=== PATIENT | female | born 1980 | race African-American/Black ===

== ENCOUNTER 2019-07-22 14:09 | Inpatient (IN) | payer BC, OTHER ==
[~2019-07-22] VITALS: Ht 162.6 cm; Wt 92.1 kg
--- NOTE | ~2019-07-22 | HC ---
[facility] [place] [address] CONSULTATION Name: MITCHELL SOLIZ Room #: 441-P [facility] IN M.R.#: [id number] Admission: 07/22/19 Attend Phys: Alvina Riddle MD Discharge: 07/27/19 Date of : 76 Report #: [id number] THIS REPORT FOR: //name// CC: [facility] physician/PCP Alvina Riddle DATE OF SERVICE: 07/27/2019 REASON FOR CONSULTATION: Cholecystectomy. ASSESSMENT: 1. Biliary dyskinesia. 2. Diffuse gastritis. 3. Chronic nausea and vomiting. 4. Minimal change glomerulonephritis. 5. Obesity. 6. Severe hypoalbuminemia. 7. On steroids. RECOMMENDATIONS: 1. Thank you for the consultation. I will follow along. 2. The patient has diagnosis of biliary dyskinesia regarding gallbladder. Discussed what this means with the patient, being that it is a functional disorder of the gallbladder. Recommend cholecystectomy when medically appropriate. Given that she has severe hypoalbuminemia and is being started on treatment for this, I think it would be prudent to give her time to see if we cannot get her medical conditions optimized prior to operating. 3. Did discuss the possibility of proceeding with a laparoscopic cholecystectomy this hospital stay with her current conditions. I do think if all goes well, we could safely perform a laparoscopic cholecystectomy, but given that complications sometimes are not predictable, in the event that she has a complication, she would not do well. The patient was satisfied with this initially; however, she grew more irritable and tearful regarding the plan. 4. I will follow along and reevaluate daily. HISTORY OF PRESENT ILLNESS: The patient is a 38-year-old female who has a longstanding history of abdominal pain. Per the patient, her story begins in January 2019 with nausea, vomiting, diarrhea. She presented to the ER and was told she had gastritis. Shortly thereafter, she began noticing diffuse swelling in her extremities and body, but mainly in her ankles and feet. Then, in April 2019, she had nausea, vomiting, diarrhea symptoms return. She presented to the ER and was again told she had gastritis. Her swelling was more severe following that. CT scan was performed that demonstrated colitis. The patient was following up with the primary care physician for the edema, was started on metolazone and Lasix. Then on 07/12/2019, the patient underwent a renal biopsy and was diagnosed with minimal change glomerulonephritis. She was started on [address] [address] CONSULTATION Name: MITCHELL SOLIZ Room #: 441-P [facility] IN ..#: [id number] Admission: 07/22/19 Attend Phys: Alvina Riddle MD Discharge: 07/27/19 Date of : 76 Report #: [id number] prednisone 60 mg and began this on 07/21/2019. Shortly thereafter that, she felt horrible, on 07/22/2019, began having severe fatigue, vomiting, nausea, diarrhea and diffuse cramps. The patient underwent an EGD this hospitalization and diffuse gastritis was identified. The patient underwent a PIPIDA scan on 07/23/2019 and was diagnosed with low ejection fraction and with biliary dyskinesia. The patient reports that her pain is in her left upper quadrant. PAST MEDICAL HISTORY: 1. Constipation. 2. Minimal change glomerulonephritis, on steroids. PAST SURGICAL HISTORY: 1. Tubal ligation. 2. EGD. 3. Colonoscopy 10 years ago. SOCIAL HISTORY: Denies the use of alcohol, tobacco or recreational drugs. 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 FAMILY HISTORY: 1. Aunt had colorectal cancer. 2. Denies any other cancers or malignancies. 3. Denies coagulopathy. REVIEW OF SYSTEMS: CONSTITUTIONAL: No fever. No chills. HEENT: Denies blurring of vision, double vision, headaches, hearing loss, sinus drainage or sore throat. Denies blurring of vision, double vision, headaches, hearing loss, sinus drainage or sore throat. CARDIOVASCULAR: Denies chest pain, palpitations, orthopnea or paroxysmal nocturnal dyspnea. RESPIRATORY: Denies cough, wheezing, hemoptysis, or shortness of air. GASTROINTESTINAL: See above and below. GENITOURINARY: See above and below. MUSCULOSKELETAL: No joint pain. No muscle pain. NEUROLOGICAL: Denies tremor, stroke or seizure. Denies tremor, stroke or seizure. HEMATOLOGIC/LYMPHATICS: Denies easy bruising, easy bleeding or enlarged lymph nodes. SKIN: No rash or ulceration. ENDOCRINE: No heat or cold intolerance. PSYCHIATRIC: Denies depression, anxiety, or schizophrenia. PHYSICAL EXAMINATION: VITAL SIGNS: Temperature 36.4, pulse 58, respiratory rate 20, blood pressure 97/64, pulse ox is 100%. [address] [address] CONSULTATION Name: MITCHELL SOLIZ Room #: 441-P [facility] IN M.R.#: [id number] Admission: 07/22/19 Attend Phys: Alvina Riddle MD Discharge: 07/27/19 Date of : 76 Report #: [id number] GENERAL: No apparent distress, alert and oriented x 3. HEENT: PERRLA, EOMI, MMM, NCAT. NECK: Supple. No LAD. CARDIOVASCULAR: Regular rhythm and rate. Hemodynamically stable. Normal capillary refill. PULMONARY: Nonlabored. Clear to auscultation bilaterally. ABDOMEN: Soft, nontender to palpation, no guarding, rebound or rigidity. Nondistended. EXTREMITIES: Positive edema. SKIN: No rashes or bruises. PSYCHIATRIC: Normal mood and affect. NEUROLOGICAL: Grossly intact. CN II-XII grossly intact. MUSCULOSKELETAL: 5/5 strength in upper extremities and lower extremities bilaterally. LYMPHATICS: No cervical, inguinal, or supraclavicular lymphadenopathy. LABORATORY DATA: White blood count 9, hemoglobin 12.9, hematocrit 38.9, platelets 360. Sodium 140, potassium 3.5, creatinine 0.7, calcium 8, phosphorus 2.4. Total bilirubin 0.1, AST 19, ALT 7, alkaline phosphatase 29, albumin less than 0.6. Lipase is 98. HIDA SCAN IMPRESSION: Patent cystic duct and common bile duct. The gallbladder does not contract to any appreciable degree with the CCK infusion, suggesting gallbladder dysfunction with severe abdominal pain. By: [id number] Trino Hathaway MD /nt
[2019-07-22 14:18] VITALS: BP 113/78
[2019-07-22 15:06] LABS: HEMATOCRIT 45.4 % (37.0-47.0); HEMOGLOBIN 15.7 gm/dL (12.0-15.0); MCH 31.5 pg (26.0-34.0); MCHC 34.5 g/dL (28.0-37.0); MCV 91.4 fL (80.0-100.0); PLATELET COUNT 304 thou/uL (150-400); RBC 4.97 mil/uL (4.20-5.00); RDW 13.3 % (10.5-14.5); WBC 10.7 thou/uL (4.0-11.0)
[2019-07-22 15:19] LABS: ANION GAP 9 mmol/L (7-16); BUN 16 mg/dL (7-18); CALCIUM 8.3 mg/dL (8.5-10.1); CHLORIDE 97 mmol/L (98-107); CO2 25 mmol/L (21-32); CREATININE 0.9 mg/dL (0.6-1.0); GLUCOSE 160 mg/dL (74-106); LIPASE 98 U/L (73-393); SGOT 20 U/L (15-37); SGPT 12 U/L (30-65); SODIUM 131 mmol/L (136-145); TOTAL BILIRUBIN 0.2 mg/dL (<0.1-1.0); TOTAL PROTEIN 5.3 g/dL (6.4-8.2)
[2019-07-22 15:21] LABS: POTASSIUM 2.3 mmol/L (3.5-5.1)
[2019-07-22 15:27] LABS: ALBUMIN < 0.6 g/dL (3.4-5.0)
[2019-07-22 15:56] VITALS: BP 113/78
[2019-07-22 16:10] LABS: URINE BLOOD 1+ (Negative); URINE COLOR YELLOW; URINE GLUCOSE-RANDOM* NEGATIVE (Negative); URINE KETONES NEGATIVE (Negative); URINE LEUKOCYTES-REFLEX NEGATIVE (Negative); URINE NITRITE-REFLEX NEGATIVE (Negative); URINE PROTEIN (DIPSTICK) 3+ (Negative); URINE SPECIFIC GRAVITY 1.015 (1.005-1.035)
[2019-07-22 16:25] LABS: ICTOTEST (BILI CONFIRMATORY) Negative (Negative); URINE BILIRUBIN NEGATIVE (Negative); URINE CLARITY SL HAZY
[2019-07-22 16:46] LABS: SQUAMOUS >10 Many /LPF (0-3); URINE WBC-REFLEX 6-15 Few /HPF (0-5)
[2019-07-22 16:47] LABS: CASTS None Seen /LPF (None Seen); TRIPLE PHOSPHATE CRYSTALS 4-10 Moderate /LPF (None Seen); URINE RBC 3-10 Few /HPF (0-2)
[2019-07-22] MEDS ORDERED: CALCIUM + VITA1 EACH PO (18:10)
[2019-07-22] MEDS ORDERED: XANAX 0.5 MG0.5 M1 PO (18:10)
[2019-07-22] MEDS ORDERED: NEXIUM 40 MG CA40 M1 PO (18:10)
[2019-07-22 18:11] VITALS: BP 115/77
[2019-07-22] MEDS ORDERED: FUROSEMIDE 20 M20 M1 PO (18:11)
[2019-07-22] MEDS ORDERED: PREDNISONE 20 M20 M1 PO (18:11)
[2019-07-22] MEDS ORDERED: METOLAZONE 5 MG5 MG PO (18:11)
[2019-07-22 19:41] VITALS: BP 110/72
[2019-07-22] MEDS ORDERED: CALCIUM PLUS VIT D (23:22)
[2019-07-23 00:53] VITALS: BP 101/81
[2019-07-23 04:45] VITALS: BP 106/71
[2019-07-23 04:57] LABS: ABSOLUTE NEUTROPHILS 4.7 thou/uL (1.4-8.2); BASOPHILS 0.2 % (0.0-2.0); HEMATOCRIT 44.1 % (37.0-47.0); HEMOGLOBIN 14.9 gm/dL (12.0-15.0); LYMPHOCYTES 15.6 % (24.0-44.0); MCH 31.3 pg (26.0-34.0); MCHC 33.7 g/dL (28.0-37.0); PLATELET COUNT 329 thou/uL (150-400); POLYS 78.2 % (36.0-66.0); RBC 4.74 mil/uL (4.20-5.00); RDW 13.2 % (10.5-14.5)
[2019-07-23 05:07] LABS: ALBUMIN < 0.6 g/dL (3.4-5.0); ANION GAP 6 mmol/L (7-16); BUN 14 mg/dL (7-18); CALCIUM 7.6 mg/dL (8.5-10.1); CHLORIDE 96 mmol/L (98-107); CO2 28 mmol/L (21-32); CREATININE 0.9 mg/dL (0.6-1.0); GLUCOSE 148 mg/dL (74-106); MAGNESIUM 2.5 mg/dL (1.8-2.4); SGOT 19 U/L (15-37); SGPT 7 U/L (30-65); SODIUM 130 mmol/L (136-145); TOTAL BILIRUBIN 0.1 mg/dL (<0.1-1.0); TOTAL PROTEIN 5.1 g/dL (6.4-8.2)
[2019-07-23 05:19] LABS: POTASSIUM 2.6 mmol/L (3.5-5.1)
--- NOTE | 2019-07-23 07:40 | NUR ---
ASSUMED PT CARE AT 1900. VSS. PT A&0X4. PT WAS NAUSEOUS ALL NOC BUT WAS ONLY VOMITTING SALIVA, PT COMPLAINED OF PAIN ASSOCIATED WITH HER N/V. REGLAN AND ZOFRAN GIVEN NEEDED. ONE TIME ORDER OF MORPHINE ALSO GIVEN THIS AM. POTASSIUM REPLACED PRN; PT IS ON E-LYTE PROTOCOL. PT IS STABLE, SR ON THE MONITOR ALTHOUGH SHE HAD A COUPLE EPISODES OF ST AND HER HR WAS IN THE 120s BUT SHE TRENDED DOWN TO SR. SHE HAS BEEN NPO SINCE MIDNIGHT FOR HER ULTRASOUND THIS AM. WILL CONTINUE TO MONITOR PER POC.
[2019-07-23 07:50] VITALS: BP 120/83
[2019-07-23 11:45] VITALS: BP 107/73
--- NOTE | 2019-07-23 13:06 | EKG ---
[place] [address] [address] [facility] [place] [address] ELECTROCARDIOGRAM REPORT Name: MITCHELL SOLIZ Room #: 206-P ADM IN M.R.#: [id number] Admission: 07/22/19 Attend Phys: Alvina Riddle MD Discharge: Date of : 76 Report #: [id number] THIS REPORT FOR: //name// [facility] ED Test Date: 2019-07-22 Test Time: 16:59:39 Pat Name: MITCHELL SOLIZ Department: Room: 206 Gender: F Manager Creative: LAURA : 1980 Requested By: Marta Chapman Order Number: [id number] MD: Chas Collins Measurements Intervals [place] Rate: 86 P: 36 AR: 130 QRS: 4 QRSD: 88 T: 37 QT: 349 QTc: 418 Interpretive Statements Sinus rhythm Multiple ventricular premature complexes Nonspecific ST and T wave abnormality No previous ECG available for comparison Electronically Signed On 07-23-2019 13:05:33 RN MOBILE by Chas Collins [email or web address] <ELECTRONICALLY SIGNED> By: Chas Collins MD, [facility] 07/23/19 1305 1659 58 Chas Collins MD, FACC /EPI
--- NOTE | 2019-07-23 14:37 | NUR ---
RD consult received for pt with wt changes. Admit with possible biliary dyskinesia, gallbladder sludge. N/V for 3-4 days. Pt reports usual wt around 175 lb but has been higher with need for lasix. Pt will be discharging and having tests scheduled as OP. Asking if she can eat now-RN confirmed diet will advance to clear liquids. low nutrition risk
[2019-07-23 15:50] VITALS: BP 109/77
--- NOTE | 2019-07-23 19:55 | NUR ---
ASSUMED CARE PT SHIFT CHANGE. ASSESSMENTS CHARTED. MEDS GIVEN PER SEP. PT ALERT AND ORIENTED VSS, DENIES PAIN. C/O NAUSEA AND VOMITING-MANAGED WITH ANTIEMETICS PER SEP. O2 SATS WNL ON ROOM AIR. PT TO HAVE ABDOMINAL US-CANCELLED TODAY. PEPIDA SCAN RESCHEDULED FOR FRIDAY. PT TO HAVE EGD TOMORROW- COMMUNICATES UNDERSTANDING. CLEAR LIQUID DIET ORDERED-TOLERATING WELL. POTASSIUM REPLACED PER ORDERS. PT DENIES NEEDS AT THIS TIME. WILL CONT TO MONITOR.
[2019-07-23 20:08] VITALS: BP 117/86
[2019-07-23 22:10] LABS: CALCIUM 7.3 mg/dL (8.5-10.1); CREATININE 0.8 mg/dL (0.6-1.0); MAGNESIUM 2.1 mg/dL (1.8-2.4); POTASSIUM 3.2 mmol/L (3.5-5.1)
[2019-07-24 04:45] VITALS: BP 116/74
--- NOTE | 2019-07-24 06:44 | NUR ---
ASSUMED PT CARE AT 1900, PT A&OX4, COMPLAINED OF NAUSEA, MEDICATED WITH ZOFRAN AND METOCLOPRAMIDE PRN, NO FURTHER COMPLAINS, VS STABLE, NO COMPLAINS OF PAIN, RESTED WELL THROUGHOUT THE NIGHT, WILL CONTINUE TO MONITOR
[2019-07-24 07:55] VITALS: BP 107/72
--- NOTE | 2019-07-24 11:04 | P ---
[facility] [place] [address] PROCEDURE REPORT Name: MITCHELL SOLIZ Room #: 206-P [facility] IN M.R.#: [id number] Admission: 07/22/19 Attend Phys: Alvina Riddle MD Discharge: Date of : 76 Report #: [id number] THIS REPORT FOR: //name// CC: [facility] physician/PCP Alvina Riddle OUTPATIENT UPPER ENDOSCOPY REPORT BRIEF HISTORY: The patient is a 38-year-old woman with progressively worsening nausea and vomiting. She started with symptoms this past summer and they have been exacerbated by use of high dose steroids for glomerulonephritis; however, she did have symptoms prior to the use of steroids. PREOPERATIVE DIAGNOSIS: Worsening nausea and vomiting. POSTOPERATIVE DIAGNOSES: 1. Moderate diffuse gastritis. 2. Small hiatus hernia. MEDICATIONS: Deep sedation with propofol per Anesthesia. SPECIMEN: Biopsies of gastritis. ESTIMATED BLOOD LOSS: 3 mL. PROCEDURE: EGD with biopsy. FINDINGS: Prior to propofol sedation, procedure of upper endoscopy discussed with the patient as well as potential risks and its complications. She indicates she understands and desires to proceed. DESCRIPTION OF PROCEDURE: With the patient in left lateral decubitus position, the Olympus video endoscope was inserted in the cervical esophagus under direct vision without difficulty. Examination of this organ through its entire style length revealed normal esophageal mucosa down the squamocolumnar junction. Squamocolumnar junction was inspected and noted to be unremarkable. There is no evidence of ulcers, erosions or endoscopic evidence of esophagitis. No strictures or masses were seen. No rings were seen. Intermittently, a small hiatus hernia was noted. The mucosa and hernia was unremarkable. The scope was advanced in the stomach, which was examined on end view as well as retroflexed views. There was a diffuse gastritis in the form of diffuse nodularity in the antrum and body of the stomach; however, the mucosa was intact and there were no ulcers or erosions. Also with regards to nausea and vomiting, there were no retained solids or liquids in the stomach. There was no endoscopic evidence of gastric outlet obstruction. Upon retroflexion, the small hiatus hernia was seen. No other abnormalities were identified. The pylorus was unremarkable. Duodenal bulb was unremarkable and postbulbar areas sweep down to the [facility] [address] [place] [address] PROCEDURE REPORT Name: MICTHELL SOLIZ Room #: 206-P [facility] IN ..#: [id number] Admission: 07/22/19 Attend Phys: Alvina Riddle MD Discharge: Date of : 76 Report #: [id number] portion was unremarkable. The villous pattern was normal. At that point, the scope was slowly withdrawn and careful circumferential views confirmed the above findings. The patient tolerated the procedure well. Biopsies obtained of the gastritis. DISPOSITION: The patient with progressively worsening nausea and vomiting. Symptoms clearly been exacerbated by steroids, but symptoms were present prior to institution of steroid therapy. The patient is a marijuana user and this certainly may be a factor. There was no evidence of outlet obstruction. She does have gallbladder sludge and further evaluation is underway with regards to possibly gallbladder disease. At this point in time, we will continue PPI, also we can try scopolamine patch. She may advance diet as tolerated. In addition, she did have an abnormal appearance of the colon several months ago. She has never had a colonoscopy. She does have diffuse abdominal pain and she has had irregular bowel habits. Once she has recovered from her nausea and vomiting and can tolerate a prep, a colonoscopy would be reasonable consideration at a later date as well. <ELECTRONICALLY SIGNED> By: Jamison Marti MD 07/24/19 1104 [id number] [id number] Jamison Marti MD /nt
[2019-07-24 15:50] VITALS: BP 100/72
--- NOTE | 2019-07-24 17:09 | NUR ---
ASSUMED CARE AT SHIFT CHANGE, EGD DONE TODAY, GI PRODUCTION CELL LEADER CALLED AND REPORTED THAT THE PATIENT HAD SEVERE NAUSEA, AND WAS MEDICATED IN GI LAB. C/O NAUSEA AND ANXIETY WHEN SHE GOT BACK, MEDICATED FOR ANXIETY AND SLEPT FOR 2 HOURS. PATIENT WAS ABLE TO TOLERATED CLEAR LIQUIDE DIET, AND DENIES ANY NAUSEA AT THIS TIME. WILL CONTINUE WITH POC.
[2019-07-24 18:08] VITALS: BP 108/69
--- NOTE | 2019-07-24 19:33 | NUR ---
Pt transferred from . Antiemetic given. Report given to rosita JUAREZ.
[2019-07-24 19:45] VITALS: BP 116/75
--- NOTE | 2019-07-25 00:52 | NUR ---
PT AMBULATING TO BATHROOM INDEPENDENTLY AND IS TOLERATING WELL. DENIES PAIN. PLAN FOR PIPPIDA SCAN 07/26. RESTING COMFORTABLY. NO NEEDS VOICED. CALL LIGHT WITHIN REACH. WILL CONTINUE TO PROVIDE FREQUENT OBSERVATION.
[2019-07-25 04:47] VITALS: BP 101/66
[2019-07-25 05:03] LABS: CALCIUM 7.4 mg/dL (8.5-10.1); CREATININE 0.7 mg/dL (0.6-1.0); MAGNESIUM 2.2 mg/dL (1.8-2.4); POTASSIUM 3.6 mmol/L (3.5-5.1)
[2019-07-25 05:05] LABS: HEMATOCRIT 42.1 % (37.0-47.0); HEMOGLOBIN 14.1 gm/dL (12.0-15.0); MCH 31.3 pg (26.0-34.0); MCHC 33.4 g/dL (28.0-37.0); MCV 93.5 fL (80.0-100.0); PLATELET COUNT 324 thou/uL (150-400); RBC 4.51 mil/uL (4.20-5.00); RDW 13.4 % (10.5-14.5); WBC 8.3 thou/uL (4.0-11.0)
[2019-07-25 08:29] VITALS: BP 121/71
--- NOTE | 2019-07-25 09:55 | NUR ---
PT RESTING IN BED PT IS ON CLEAR LIQUID DIET HAD FEW ITEMS OF THAT MENU. HAS IV FLUIDS THAT WAS ORDERED AND IS INFUSING ORDERED. HAS IV PUSH MEDS THAT WAS GIVEN. PT IS CONT OF B&B. PT PLEASANT AND COOPERATIVE WITH CARE.
[2019-07-25 10:32] LABS: ABSOLUTE NEUTROPHILS 4.2 thou/uL (1.4-8.2)
[2019-07-25 10:33] LABS: ATYPICAL LYMPHS 2 %
[2019-07-25 10:34] LABS: ANISOCYTOSIS SLIGHT
[2019-07-25 17:32] VITALS: BP 124/85
[2019-07-25 19:43] VITALS: BP 105/79
--- NOTE | 2019-07-26 02:19 | NUR ---
PT AMBULATING TO BATHROOM INDEPENDENTLY AND IS TOLERATING WELL. DENIES PAIN. PLAN FOR PIPPIDA SCAN 07/26. DENIES NAUSEA. RESTING COMFORTABLY. NO NEEDS VOICED. CALL LIGHT WITHIN REACH. WILL CONTINUE TO PROVIDE FREQUENT OBSERVATION.
[2019-07-26 04:05] VITALS: BP 104/60
[2019-07-26 07:30] VITALS: BP 99/67
--- NOTE | 2019-07-26 18:00 | NUR ---
PT ASSESSED AT START OF SHIFT. HAD PIPIDA SCAN THIS AFTERNOON. RESULTS PENDING. C/O SOME PAIN AND MILD NAUSEA AFTER EATING PEANUT BUTTER AND CRACKERS THIS AM. ON CLEAR LIQUIDS AT THIS TIME. PT AMBULATED THE HALLS SOME.
[2019-07-26 19:45] VITALS: BP 121/92
[2019-07-27 04:26] VITALS: BP 104/65; BP 121/92
--- NOTE | 2019-07-27 04:39 | NUR ---
ASSUMED CARE OF PATIENT AT APPROX. 1999. ASSESSMENT CHARTED. MEDICATIONS GIVEN PER EMAR. PATIENT IS A&OX4, VSS AND DENIES PAIN. 02 SATS ARE WNL ON RA. PATIENT GETS UP INDEPENDENTLY AND WAS AMBULATING IN HALLWAY EARLIER THIS SHIFT. PATIENT REPORTED HAVING A SMALL BM, DIARRHEA AFTER CONSUMING PEANUT BUTTER AND CRACKERS EARLIER TODAY. PATIENT IS EXTREMELY ANXIOUS ABOUT HER PIPIDA RESULTS AND NEEDS TO TALK TO A PHYSICIAN ABOUT THE PLAN. PATIENT IS ALSO VERY CONCERNED ABOUT THE EDEMA IN HER BLE AND STATES ITS "BECAUSE HER LASIK DOSE IS LOWER THAN WHAT SHE'S BEEN TAKING". PATIENT WAS GIVEN XANAX PRN FOR SLEEP AND ANXIETY; SHE VOICES NO OTHER NEEDS AT THIS TIME. WILL CONTINUE TO MONITOR AND FOLLOW PLAN OF CARE
[2019-07-27 06:13] LABS: ABSOLUTE NEUTROPHILS 3.5 thou/uL (1.4-8.2); BASOPHILS 0.3 % (0.0-2.0); EOSINOPHILS 1.1 % (0.0-3.0); HEMATOCRIT 38.9 % (37.0-47.0); HEMOGLOBIN 12.9 gm/dL (12.0-15.0); LYMPHOCYTES 51.5 % (24.0-44.0); MCH 30.9 pg (26.0-34.0); MCHC 33.1 g/dL (28.0-37.0); MCV 93.4 fL (80.0-100.0); MONOCYTES 8.3 % (1.0-8.0); PLATELET COUNT 360 thou/uL (150-400); POLYS 38.8 % (36.0-66.0); RBC 4.17 mil/uL (4.20-5.00); RDW 13.2 % (10.5-14.5)
[2019-07-27 06:37] LABS: CREATININE 0.7 mg/dL (0.6-1.0); PHOSPHORUS 2.4 mg/dL (2.5-4.9); POTASSIUM 3.5 mmol/L (3.5-5.1)
--- NOTE | 2019-07-27 06:45 | NUR ---
CORRECTION: PATIENT STATES SHE TAKES 60 MG OF LASIX AND AN UNKNOW DOSE OF METOLAZONE FOR FLUID RETENTION
[2019-07-27 08:14] VITALS: BP 97/64
[2019-07-27] MEDS ORDERED: ZOFRAN ODT4 MG PO (14:27)
[2019-07-27] MEDS ORDERED: CALTRATE-600 W1 EACH PO (14:27)
[2019-07-27 16:30] VITALS: BP 97/64
--- NOTE | 2019-07-27 18:19 | NUR ---
DC ORDERS RECEIVED. DC INSTRUCTIONS, F/U APPOINTMENT AND SCRIPTS REVIEWED WITH PT. IV REMOVED FROM R AC. PT ESCORTED TO MAIN ENTRANCE BY ADMINISTRATIVE VOLUNTEER.
--- NOTE | 2019-07-28 09:47 | PATH ---
[facility] [address] [place] [address] PATHOLOGY RPT PROCEDURE Name: MITCHELL SOLIZ Room #: 441-P DIS IN M.R.#: [id number] Admission: 07/22/19 Date of : 76 Discharge: 07/27/19 Report #: [id number] Path Case #: [id number] [facility] Accession Number: [id number] . 01 Material submitted: . stomach - BIOPSY OF GASTRITIS RULE OUT H PYLORI . 01 Clinical history: . N/V r/o h pylori . 02 Diagnosis: Gastric biopsy "biopsy of gastritis, r/o H. pylori": - Moderate chronic gastritis with lamina propria chronic inflammation. - The immunoperoxidase stain for Helicobacter pylori is positive. (SHA:pit 07/27/2019) QTP 07/27/2019 1044 Local . 02 Electronically signed: . Nael Keller MD, Pathologist NPI- [id number] . 01 Gross description: . The specimen is received in formalin, labeled "Edmundo Mitchell, BX of gastritis" and consists of multiple fragments of pink-browne tissue measuring 1.0 x 0.5 x 0.2 cm in aggregate which are entirely submitted in A1. (SDY; 07/26/2019) SYU/SYU 07/26/2019 1331 Local . 02 Pathologist provided ICD-10: K29.50, B96.81 . 02 CPT . 244384, A21579 Specimen Comment: A courtesy copy of this report has been sent to [phone] Specimen Comment: Report sent to Specimen Comment: A duplicate report has been generated due to demographic updates. Performed at: [address] [facility] [facility] [address] [id number] MD Jonnathan Contreras MD Phone: [phone] Performed at: 02 [facility] [address] [id number] MD Slava Lea MD Phone: [phone]
== END 2019-07-27 18:35 | disposition home or self-care (01) | DRG 392 ==
LOC: ER 14:09 → EROBS 15:53 → 4S 15:53 → 2N 15:53 → 4S 07-24 17:56
PROVIDERS: Nurse Practitioner Family; ADMIT Internal Medicine
PROC: 0DB68ZX Excision of Stomach, Via Natural or Artificial Opening Endoscopic, Diagnostic (ICD-10-PCS; principal; 2019-07-22)
DX: K29.70 Gastritis, unspecified, without bleeding (principal); E87.6 Hypokalemia; K82.8 Other specified diseases of gallbladder; N05.9 Unspecified nephritic syndrome with unspecified morphologic changes; E66.9 Obesity, unspecified; E88.09 Other disorders of plasma-protein metabolism, not elsewhere classified; K59.00 Constipation, unspecified; K44.9 Diaphragmatic hernia without obstruction or gangrene; E83.42 Hypomagnesemia; K80.20 Calculus of gallbladder without cholecystitis without obstruction; F41.9 Anxiety disorder, unspecified; Z28.21 Immunization not carried out because of patient refusal; Z68.34 Body mass index [BMI] 34.0-34.9, adult; Z80.0 Family history of malignant neoplasm of digestive organs; Z79.899 Other long term (current) drug therapy
CPT/HCPCS: 10081; 10102; 62110; 62900

== ENCOUNTER 2020-03-22 14:22 | Emergency (ER) | payer BC, OTHER ==
[~2020-03-22] VITALS: Ht 162.6 cm; Wt 79.4 kg
[~2020-03-22 14:22] MED LIST: CALCIUM + VITA1 EACH PO; CALCIUM PLUS VIT D; CALTRATE-600 W1 EACH PO; FUROSEMIDE 20 M20 M1 PO; METOLAZONE 5 MG5 MG PO; NEXIUM 40 MG CA40 M1 PO; PREDNISONE 20 M20 M1 PO; XANAX 0.5 MG0.5 M1 PO; ZOFRAN ODT4 MG PO
[2020-03-22] MEDS ORDERED: PREDNISONE 5 MG5 M1 PO (15:05)
[2020-03-22 15:07] LABS: URINE BILIRUBIN NEGATIVE (Negative); URINE BLOOD 1+ (Negative); URINE COLOR YELLOW; URINE GLUCOSE-RANDOM* NEGATIVE (Negative); URINE KETONES TRACE (Negative); URINE LEUKOCYTES-REFLEX NEGATIVE (Negative); URINE NITRITE-REFLEX NEGATIVE (Negative); URINE PROTEIN (DIPSTICK) 3+ (Negative)
[2020-03-22 15:10] LABS: URINE CLARITY SL HAZY
[2020-03-22 15:12] LABS: SQUAMOUS >10 Many /LPF (0-3); URINE WBC-REFLEX 0-5 Rare /HPF (0-5)
[2020-03-22 15:13] LABS: CASTS None Seen /LPF (None Seen); CRYSTALS None Seen /LPF (None Seen); URINE RBC 3-10 Few /HPF (0-2)
[2020-03-22 15:25] LABS: ABSOLUTE NEUTROPHILS 8.6 thou/uL (1.4-8.2); BASOPHILS 0.9 % (0.0-2.0); EOSINOPHILS 0.6 % (0.0-3.0); HEMATOCRIT 43.1 % (37.0-47.0); LYMPHOCYTES 20.3 % (24.0-44.0); MCH 31.2 pg (26.0-34.0); MCHC 34.7 g/dL (28.0-37.0); MCV 89.8 fL (80.0-100.0); PLATELET COUNT 376 thou/uL (150-400); POLYS 74.2 % (36.0-66.0); RDW 14.6 % (10.5-14.5); WBC 11.6 thou/uL (4.0-11.0)
[2020-03-22 15:34] LABS: ANION GAP 7 mmol/L (7-16); BUN 9 mg/dL (7-18); CALCIUM 7.8 mg/dL (8.5-10.1); CHLORIDE 99 mmol/L (98-107); CO2 27 mmol/L (21-32); CREATININE 0.7 mg/dL (0.6-1.0); GLUCOSE 104 mg/dL (74-106); POTASSIUM 3.2 mmol/L (3.5-5.1); SODIUM 133 mmol/L (136-145)
[2020-03-22 15:44] LABS: ALBUMIN 0.6 g/dL (3.4-5.0); LIPASE 82 U/L (73-393); SGOT 24 U/L (15-37); SGPT 19 U/L (30-65); TOTAL BILIRUBIN 0.3 mg/dL (0.2-1.0); TOTAL PROTEIN 4.9 g/dL (6.4-8.2); TROPONIN-I <0.06 ng/mL (<0.06)
[2020-03-22] MEDS ORDERED: PRILOSEC OTC20 MG PO (16:41)
[2020-03-22] MEDS ORDERED: PROMS25 WY RECTAL (16:41)
[2020-03-22] MEDS ORDERED: REGLAN 5 MG TAB5 MG PO (16:41)
[2020-03-22 17:33] VITALS: BP 118/83
--- NOTE | 2020-03-23 07:34 | EKG ---
[facility] [place] [address] ELECTROCARDIOGRAM REPORT Name: MITCHELL SOLIZ Room #: DEP [facility]#: [id number] Admission: 03/22/20 Attend Phys: Discharge: 03/22/20 Date of : 76 Report #: [id number] THIS REPORT FOR: cc: Marko Ramírez MD, Greg L. MD Lundgren,Chas Brand MD 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 /EPI
== END 2020-03-22 17:39 | disposition home or self-care (01) ==
LOC: ER 14:22
PROVIDERS: Emergency Medicine
DX: R11.2 Nausea with vomiting, unspecified (principal); E87.6 Hypokalemia; N04.9 Nephrotic syndrome with unspecified morphologic changes; Z79.899 Other long term (current) drug therapy; Z87.891 Personal history of nicotine dependence